=== PATIENT | male | born 1970 | race Caucasian/White ===

== ENCOUNTER 2023-09-01 09:05 | Emergency (ER) | payer OTHER, SELFPAY ==
[2023-09-01] VITALS (24 sets, daily range): BP systolic 110–135; BP diastolic 58–89; PULSE 57–70; RESP 16–20; TEMP 36.4; O2SAT 96–100; BMI 30.6
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
[2023-09-01] MEDS: ONDANSETRON 4 MG ODT SL (10:05)
[2023-09-01] MEDS: MORPHINE 4 MG/ML INJ IM (10:06)
[2023-09-01] MEDS: HYDROMORPHONE 1 MG INJ IM (11:50)
[2023-09-01] MEDS: OXYCODONE/ACETAMINOPHEN 5/325 TABLET 2 TAB PO (13:30)
--- NOTE | 2023-09-01 13:39 | PC.NURSE ---
[employer]ACH Note: Dr. Melendez at accepts patient. Patient will be going ER to ER by POV. Patient sent with all paperwork and instructions to give to ER upon arrival.
== END 2023-09-01 13:46 | disposition short-term general hospital (02) ==
PROVIDERS: Emergency Provider Emergency Medicine
DX: S42.431A Displaced fracture (avulsion) of lateral epicondyle of right humerus, initial encounter for closed fracture (principal); V19.9XXA Pedal cyclist (driver) (passenger) injured in unspecified traffic accident, initial encounter
CPT/HCPCS: 29105; 73060; 73070; 96372; 99283; 99284; J1170; J2270